=== PATIENT | female | born 1965 | race Hispanic/Latino ===

== ENCOUNTER 2017-07-14 14:36 | Outpatient (CLI) | payer OTHER ==
--- NOTE | 2017-07-15 09:13 | Mammography Report ---
Bilateral digital screening mammogram with CAD. Comparison study is dated July 13, 2016. Findings: There is intermediate density of the fibroglandular tissue bilaterally. In the lateral right breast on exaggerated CC projection, there is a focal parenchymal asymmetry not seen on the MLO projection. There is no architectural distortion or suspicious calcifications. Impression: Right parenchymal asymmetry. BI-RADS code: 0. Recommendation: Spot compression, 90 degree view, and ultrasound if needed.
== END 2017-07-14 14:37 | disposition home or self-care (01) ==
LOC: SPVWC 14:36
PROVIDERS: ATTEND Obstetrics & Gynecology
DX: Z12.31 Encounter for screening mammogram for malignant neoplasm of breast (principal)
CPT/HCPCS: 77067; G0202